=== PATIENT | female | born 1985 | race Caucasian/White ===

== ENCOUNTER 2019-01-17 06:42 | Day surgery (SDC) | payer OTHER ==
--- NOTE | 2018-12-28 16:51 | GHP ---
[f rep st] HISTORY AND PHYSICAL DATE OF ADMISSION: 01/17/2019 ADMITTING DIAGNOSIS: Severe cervical dysplasia, TERESA 3. HISTORY OF PRESENT ILLNESS: Patient is a 33-year-old G2, P 0-0-2-0 with an unknown last menstrual period with Liletta IUD in place, who presented to my office in September 2018 with an abnormal Pap smear done by her primary care physician in July 2018. Pap smear reveals ASC-H and high-risk HPV with negative typing for 16 and 18. The patient states she had an abnormal Pap smear in 2007 and had a colposcopy done with biopsies, but no treatment. She did have a followup Pap smear in 2010 that was normal, and then this was her most recent Pap smear. The patient states she is in a monogamous relationship x8 years now with her fiance. She is a nonsmoker. Patient then underwent a colposcopy in October 2018 which was satisfactory. Pathology revealed no dysplasia at the 1 o'clock biopsy site, but the ECC was positive for severe cervical dysplasia, TERESA 3. Discussed these findings, and recommend proceeding with a cold knife cone biopsy of the cervix with ECC. The patient does state over the last few months she has not been happy with her IUD and has had spotting most of the month pretty much on a daily basis. She is interested in getting her IUD removed at the time of the cone biopsy. She will consider using another form of control and is considering either the ParaGard IUD or the Mirena IUD. PAST OBSTETRIC HISTORY: In 2009 and 2013, she had elective AB. PAST GYNECOLOGIC HISTORY: Age of menarche 11. Cycles were monthly and she would bleed more than 7 days. The patient had Liletta placed in July 2018. The patient has a history of abnormal Pap smears, but no treatment. 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 PAST MEDICAL HISTORY: Gallbladder disease, severe cervical dysplasia. PAST SURGICAL HISTORY: Colposcopy in 2007 and 2017. EAB in 2009 and 2013. Laparoscopic cholecystectomy in 2001. CURRENT MEDICATIONS: None. ALLERGIES: No known drug allergies. SOCIAL HISTORY: The patient is in a monogamous relationship with a fiancee for 8 years now. Denies any tobacco use. Drinks socially less than 1 per week, and admits to marijuana use once per week. The patient is a persaud commissioner. FAMILY HISTORY: Father, alcoholism, high blood pressure, and heart disease. Both paternal and maternal aunts with diabetes. REVIEW OF SYSTEMS: A 10-point review of systems is negative, pertinent positives noted in HPI. LABORATORIES: None. STUDIES: None. PHYSICAL EXAMINATION: GENERAL: Patient is a well-nourished, well-developed female. Alert and oriented x3, in no apparent distress. VITAL SIGNS: Stable. Patient is afebrile. SKIN: Warm, dry without rash. NEURO: Grossly intact. CARDIOVASCULAR: Regular rate and rhythm. LUNGS: Clear to auscultation bilaterally. ABDOMEN: Soft, nontender, nondistended. BIMANUAL: Anteverted, normal-sized uterus, nontender, mobile. No adnexal masses noted. EXTREMITIES: Normal to inspection without calf tenderness or edema. ASSESSMENT AND PLAN: The patient is a 33-year-old, 2, para 0-0-2-0 with severe cervical dysplasia, TERESA 3. 1. Discussed the procedure, a cone biopsy of the cervix, its limitations, n.p.o. status and postoperative recovery. 2. Surgical consents were obtained. Discussed risks, benefits, and alternatives of the procedure including but not limited to bleeding, infection, cervical stenosis that can cause infertility, however, it is rare. There is also an increased risk of miscarriage and delivery secondary to incompetent cervix. Patient is unsure about future childbearing. 3. Patient understands all risks of the surgery and wants to proceed. 4. Antibiotics colon therapist to operating room. 5. Sequential compression devices for deep venous thrombosis prophylaxis. 6. Discussed Gardasil 9 and do recommend it at this time; patient is to check with insurance, [employer] to see if they cover it. 7. Will remove her current intrauterine device, Liletta, at time of surgery. She is aware that we will not be placing a new intrauterine device in the operating room secondary to her paying out of pocket. /[id number]/MODL MTDD
[2019-01-17] MEDS ORDERED: ceFAZolin 2 GM/DEXTROSE 100 ML IV ONE (07:03)
[2019-01-17] MEDS ORDERED: LR 1,000 ML IV ONE (07:04)
[2019-01-17] MEDS ORDERED: MONSELS-FERRIC SUBSULFATE 8 GM SDV TP ONE (07:42)
[2019-01-17] MEDS ORDERED: ACETIC ACID IRR SOLN 0.25% 1,000 ML BTL ONE (07:43)
[2019-01-17] MEDS ORDERED: VASOPRESSIN 20 UNIT/ML VIAL ONE (07:44)
--- NOTE | 2019-01-17 07:50 | PDHPUP ---
History & Physical Update H&P update statement: This history and physical update is based on an assessment of the patient which was completed after admission or registration (within 24 hours), but prior to the surgery/procedure. H&P update: H&P reviewed & patient examined, no change in patient's condition since H&P completed
[2019-01-17] MEDS ORDERED: POTASSIUM IODIDE/IODINE (LUGOL'S SOLN) 500 ML TP ONE (08:00)
[2019-01-17] MEDS ORDERED: LIDOCAINE 1% 300 MG/30 ML SDV ONE (08:01)
[2019-01-17] MEDS ORDERED: SILVER NITRATE APPLICATOR 1 APPL TP ONE (08:01)
--- NOTE | 2019-01-17 08:04 | PDANEPAE ---
ANE History of Present Illness Atypical cervical cells, here for cone and bx ANE Past Medical History - Cardiovascular History Hx Hypertension: No Hx Arrhythmias: No Hx Chest Pain: No Hx Coronary Artery / Peripheral Vascular Disease: No Hx CHF / Valvular Disease: No Hx Palpitations: No - Pulmonary History Hx COPD: No Hx Asthma/Reactive Airway Disease: No Hx Recent Upper Respiratory Infection: No Hx Oxygen in Use at Home: No Hx Sleep Apnea: No Sleep Apnea Screening Result - Last Documented: Positive - Neurologic History Hx Cerebrovascular Accident: No Hx Seizures: No Hx Dementia: No - Endocrine History Hx Diabetes: No - Renal History Hx Renal Disorders: No - Liver History Hx Hepatic Disorders: Yes Hepatic History Comment: GALLSTONES - Neurological & Psychiatric Hx Hx Neurological and Psychiatric Disorders: No - Cancer History Hx Cancer: Yes Cancer History Comment: CERVICAL - Congenital Disorder History Hx Congenital Disorders: No - GI History Hx Gastrointestinal Disorders: No - Other Health History Other Health History: NEG - Chronic Pain History Chronic Pain: No - Surgical History Prior Surgeries: LAPAROSCOPY. D&C = AB X2 ANE Review of Systems Review of Systems: - Exercise capacity METS (RN): 4 METS ANE Patient History - Allergies Allergies/Adverse Reactions: No Allergies [NKDA] Allergy (Verified 12/28/18 15:45) - Home Medications Home Medications: NK [No Known Home Meds] 01/07/19 [Last Taken Unknown] - NPO status NPO Since - Liquids (Date): 01/16/19 NPO Since - Liquids (Time): 19:00 NPO Since - Solids (Date): 01/16/19 NPO Since - Solids (Time): 19:00 - Smoking Hx Smoking Status: Former smoker - Family Anes Hx Family Hx Anesthesia Complications: MOM ALLERGIC TO ANTIHISTAMINES ANE Labs/Vital Signs - Vital Signs Blood Pressure: 97/63 Heart Rate: 80 Respiratory Rate: 16 O2 Sat (%): 94 Height: 154.94 cm Weight: 94.347 kg ANE Physical Exam - Airway Neck exam: FROM, increased neck circumference, short neck Mallampati Score: Class 2 Mouth exam: normal dental/mouth exam - Pulmonary Pulmonary: no respiratory distress, no rales or rhonchi - Cardiovascular Cardiovascular: regular rate and rhythym, no murmur, rub, or gallop - ASA Status ASA Status: II ANE Anesthesia Plan Anesthesia Plan: GA w LMA Total IV Anesthesia: No
[2019-01-17] MEDS ORDERED: MIDAZOLAM 2 MG/2 ML VIAL ONE (08:05)
[2019-01-17] MEDS ORDERED: MIDAZOLAM 2 MG/2 ML VIAL IVP ONE (08:05)
[2019-01-17] MEDS ORDERED: LIDOCAINE 2% 100 MG/5 ML SYR ONE (08:12)
[2019-01-17] MEDS ORDERED: PROPOFOL 200 MG/20 ML VIAL ONE (08:12)
[2019-01-17] MEDS ORDERED: ONDANSETRON 4 MG/2 ML VIAL ONE (08:12)
[2019-01-17] MEDS ORDERED: DEXAMETHASONE 4 MG/ML VIAL ONE (08:12)
[2019-01-17] MEDS ORDERED: fentaNYL 100 MCG/2 ML INJ ONE ×2 (08:12→08:31)
[2019-01-17] MEDS ORDERED: MEPERIDINE 25 MG/0.5 ML AMP IVP PRN (08:45)
[2019-01-17] MEDS ORDERED: LR 500 ML IV PRN (08:45)
[2019-01-17] MEDS ORDERED: PROMETHAZINE HCL 25 MG/ML INJ IVP PRN (08:45)
[2019-01-17] MEDS ORDERED: HYDROmorphONE/DILAUDID 2 MG/ML INJ IVP PRN (08:45)
[2019-01-17] MEDS ORDERED: oxyCODONE IR 5 MG TAB PO PRN (08:45)
[2019-01-17] MEDS ORDERED: fentaNYL 100 MCG/2 ML INJ IVP PRN (08:45)
[2019-01-17] MEDS ORDERED: NALOXONE HCL 0.4 MG/ML INJ IVP PRN (08:45)
[2019-01-17] MEDS ORDERED: ACETAMINOPHEN 500 MG TAB PO PRN (08:45)
[2019-01-17] MEDS ORDERED: HYDROmorphONE/DILAUDID 2 MG/ML INJ ONE (09:10)
--- NOTE | 2019-01-17 09:26 | POSTOPPROG ---
Post Op Note Date of Operation: 01/17/19 Surgeon: Jennifer Angulo Architectural Engineer: None Anesthesiologist: Altagracia Oates Anesthesia: GET(General Endotracheal) Pre-op Diagnosis: Severe cervical dysplasia-TERESA III Post-op Diagnosis: Severe cervical dysplasia-TERESA III Indication: 33 y/o w/ TERESA III on endocervical curettage; wants IUD removed Procedure: IUD removal; Cold knife cone biopsy and endocervical curettage Findings: Mild aceto-white noted at 12 o'clock with humberto of Lugol's. Cervix was 3 cm Inf/Abcess present in the surg proc area at time of surgery?: No Depth: Organ Space EBL: Minimal (20 cc) Total fluids administered: 1 L LR UO: pt empited her bladder prior Complications: None Specimen(s): Cervical cone biopsy and endocervical curettings
--- NOTE | 2019-01-17 09:27 | POSTANESTH ---
Post Anesthetic Evaluation Cardiovascular Status: Normal, Stable Respiratory Status: Normal, Stable Level of Consciousness/Mental Status: Can Participate in Eval, Alert and Oriented Pain Control: Adequate, Prn Tx Ordered Nausea/Vomiting Control: Adequate, Prn Tx Ordered Complications Possibly Related to Anesthesia: None Noted
[2019-01-17] MEDS ORDERED: DIAZEPAM 5 MG/ML 1 ML SYR ONE (11:01)
[2019-01-17] MEDS ORDERED: oxyCODONE IR 5 MG TAB ONE (11:01)
[2019-01-17] MEDS: DIAZEPAM 5 MG/ML 1 ML SYR IVP PRN ×2 (11:03→11:14)
[2019-01-17 11:22] VITALS: BP 99/58
--- NOTE | 2019-01-17 13:21 | GOP ---
[f rep st] OPERATIVE REPORT DATE OF OPERATION: 01/17/2019 SURGEON: Jennifer Angulo DO PACKING MACHINE TENDER: None. ANESTHESIA: General endotracheal. ANESTHESIOLOGIST: Blanca Oates DO. PREOPERATIVE DIAGNOSIS: Severe cervical dysplasia. POSTOPERATIVE DIAGNOSIS: Severe cervical dysplasia. PROCEDURE PERFORMED: Intrauterine device removal, cold knife cone biopsy, and endocervical curettage. FINDINGS: There was mild acetowhite noted at the 12 o'clock position with application of Lugol's. Cervix measured 3 cm long. SPECIMENS: Cervical cone biopsy and endocervical curettings. ESTIMATED BLOOD LOSS: 20 cc. INDICATIONS: Patient is a 33-year-old, G2, P0020, with TERESA 3, severe dysplasia on endocervical curettage. The patient is unhappy with her current IUD and would like it removed at this time. Discussed risks, benefits, and alternatives of the procedure including, but not limited to, bleeding, infection , cervical stenosis, risk of cervical incompetence, and infertility. The patient is aware of all these risks and wants to proceed with the surgery. Patient was properly consented. DESCRIPTION OF PROCEDURE: The patient was taken to the operating room where general anesthesia was obtained without difficulty. The patient was placed in the dorsal supine position, and prepped and draped in normal sterile fashion. A WHO time-out was performed and then, a speculum was inserted in the vagina. The IUD strings were visualized and were grasped with a ring forceps and the IUD was removed intact without difficulty. At this point, Lugol's solution was then applied to the cervix and vagina and a colposcopy was done. An Allis clamp was then placed on anterior lip of the cervix and then 20 cc of 1% lidocaine was used for a paracervical block. 0 Vicryl on a CT1 was used to place stay sutures at the base of the cervix at 3 o'clock and 9 o'clock position for traction. A dilute solution of vasopressin with 0.5 units per mL was then placed into the stroma of the cervix, about 15 cc. The cervical length was measured and noted to be 3 cm. The straight scalpel was then used to circumferentially cut to a depth of approximately 1.5 cm. Then, the angled long blade was then used to cut the top of the cone an additional 1.5 cm. The cone was then fully excised and tagged at the 12 o'clock position with suture and sent to Pathology. Endocervical curettings were then obtained, and sent to Pathology. Cautery was used over the entire base of the cone bed. Monsel's solution was also applied and hemostasis was noted. A small piece of Surgicel was then placed in the bed of the cone. The stay sutures were cut and all instruments were then removed from the vagina. Sponge, lap, and needle counts were correct x2. The patient tolerated the procedure well. No complications. The patient was then awakened, taken out of dorsal lithotomy position, and taken to the recovery room in stable condition. IV FLUIDS: 1 L of LR. URINE OUTPUT: Patient emptied her bladder prior to the procedure. /[id number]/MODL MTDD
== END 2019-01-17 11:40 | disposition home or self-care (01) ==
LOC: FSGY 06:42
PROVIDERS: ATTEND Obstetrics & Gynecology
DX: D06.0 Carcinoma in situ of endocervix (principal); Z30.432 Encounter for removal of intrauterine contraceptive device
CPT/HCPCS: J0690; J1100; J1170; J2001; J2250; J2405; J2704; J3010; J3360